=== PATIENT | male | born 2000 ===

== ENCOUNTER 2024-10-12 13:57 | Emergency (ER) | payer OTHER ==
[~2024-10-12] VITALS: Ht 172.7 cm; Wt 108.9 kg
[2024-10-12] MEDS ORDERED: POVIDONE-IODINE 118 ML BOTT TOP ONE (14:25)
[2024-10-12] MEDS ORDERED: BACITRACIN-NEOMYCIN-POLYMYXIN 0.9 GM PACKET TOP ONE (14:56)
[2024-10-12] MEDS ORDERED: CEFTRIAXONE SODIUM 1,000 MG VIAL IV ONE (15:00)
[2024-10-12] MEDS ORDERED: LIDOCAINE HCL 1% 10ML VIAL ONE (15:09)
[2024-10-12] MEDS ORDERED: CEFTRIAXONE SODIUM 1,000 MG VIAL ONE (15:09)
== END 2024-10-12 15:21 | disposition home or self-care (01) ==
LOC: ER 13:57
DX: S61.213A Laceration without foreign body of left middle finger without damage to nail, initial encounter (principal); W26.0XXA Contact with knife, initial encounter; Y93.89 Activity, other specified; Y92.89 Other specified places as the place of occurrence of the external cause; Y99.9 Unspecified external cause status